=== PATIENT | female | born 1985 | race Caucasian/White ===

== ENCOUNTER 2016-12-19 21:41 | Emergency (ER) | payer MEDICAID ==
[2016-12-19 21:56] VITALS: BP 134/85
[2016-12-19] MEDS ORDERED: Mupirocin Oint 22 GM Tube TOP ONE (23:10)
[2016-12-19] MEDS ORDERED: Mupirocin Oint 22 GM Tube ONE (23:10)
--- NOTE | 2016-12-19 23:17 | EDM.PDOC ---
ED HPI GENERAL MEDICAL PROBLEM - General Chief Complaint: Skin Complaint Stated Complaint: BREAKING OUT ALL OVER, [id number] Time Seen by Provider: 12/19/16 23:05 Source of Information: Reports: Patient History Limitations: Reports: No Limitations - History of Present Illness INITIAL COMMENTS - FREE TEXT/NARRATIVE: c/o sores to chin right thumb and buttocks. Denies prior skin infections, Notes being around nieces and nephews with sores on abdomen and extremities. Crusting to sore on chin Location: Reports: Face, Upper Extremity, Right Severity: Mild Associated Symptoms: Reports: No Other Symptoms Face Pain Score (Numeric/FACES): 8 - Related Data Allergies Allergy/AdvReac Type Severity Reaction Status Date / Time amoxicillin [Amoxicillin] Allergy Rash Verified 12/19/16 21:54 Home Meds: Home Meds . 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: Social & Family History - Family History Family Medical History: Noncontributory - Tobacco Use Smoking Status *Q: Current Every Day Smoker Years of Tobacco use: 12 Packs/Tins Daily: 0.5 Second Hand Smoke Exposure: Yes - Recreational Drug Use Recreational Drug Use: No Drug Use in Last 12 Months: No - Living Situation & Occupation Living situation: Reports: Single Occupation: Employed ED ROS GENERAL - Review of Systems Review Of Systems: See Below Constitutional: Denies: Fever Respiratory: Denies: No Symptoms Musculoskeletal: Denies: No Symptoms Skin: Reports: Lesions ED EXAM, SKIN/RASH Exam: See Below Exam Limited By: No Limitations General Appearance: Alert Throat/Mouth: Normal Voice Head: Atraumatic Extremities: Normal Inspection Neurological: Alert, Oriented, Normal Cognition Skin: Warm, Erythema, Piercing(s). No: No Rash Location, Skin: Face, Upper Extremity, Right, Other (buttocks) Characteristics: Other (1cm circular crusted lesion right chin, 5mm red lesionbase right thumb punctate central lesion white moist, 3 dried 3mm circular lesions to right upper buttock.) Associated features: Crusting. No: Warmth, Weeping Course - Vital Signs Last Recorded V/S: Last Vital Signs Temp 98.4 F 12/19/16 21:50 Pulse 100 12/19/16 21:50 Resp 18 12/19/16 21:50 BP 134/85 12/19/16 21:50 Pulse Ox 100 12/19/16 21:50 - Orders/Labs/Meds Meds: Medications Discontinued Medications Generic Name Dose Route Start Last Admin Trade Name Avinash PRN Reason Stop Dose Admin Mupirocin Confirm 12/19/16 23:10 Bactroban Oint Administered 12/19/16 23:11 Dose 22 gm .ROUTE .STK-MED ONE Departure - Departure Time of Disposition: 23:05 Disposition: Home, Self-Care 01 Condition: Good Clinical Impression: Impetigo - Discharge Information Instructions: Impetigo, Adult Referrals: Zbigniew Burris MD [Primary Care Provider] - Forms: ED Department Discharge Additional Instructions: good handwashing, avoid touching or picking at areas mupirocin 3 times daily to affected area clinic follow up if not improving in 3-4 days
== END 2016-12-19 23:15 | disposition home or self-care (01) ==
LOC: DL.ED 21:41
DX: L01.00 Impetigo, unspecified (principal); F17.210 Nicotine dependence, cigarettes, uncomplicated; Z88.1 Allergy status to other antibiotic agents
CPT/HCPCS: 99283; A9270

== ENCOUNTER 2017-06-08 22:27 | Emergency (ER) | payer MEDICAID ==
[2017-06-08] MEDS ORDERED: Sodium Chloride 0.9% 1,000 ML IV ONE (22:37)
--- NOTE | 2017-06-08 22:40 | EDM.PDOC ---
ED HPI GENERAL MEDICAL PROBLEM - General Chief Complaint: Gastrointestinal Problem Stated Complaint: PGRAQUEL BLOOD, [id number] Time Seen by Provider: 06/08/17 22:38 Source of Information: Reports: Patient History Limitations: Reports: No Limitations - History of Present Illness INITIAL COMMENTS - FREE TEXT/NARRATIVE: vomiting past week then tonight blood came out too. thinks LMP feb/nov??? denies pain or vag bleeding - Related Data Allergies Allergy/AdvReac Type Severity Reaction Status Date / Time amoxicillin [Amoxicillin] Allergy Rash Verified 06/08/17 22:30 Home Meds: Home Meds . 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: Musculoskeletal History: Reports: None Neurological History: Reports: None Psychiatric History: Reports: None Endocrine/Metabolic History: Reports: None Hematologic History: Reports: None Immunologic History: Reports: None Oncologic (Cancer) History: Reports: None Dermatologic History: Reports: None Social & Family History - Family History Family Medical History: Noncontributory - Tobacco Use Smoking Status *Q: Light Tobacco Smoker Years of Tobacco use: 5 Packs/Tins Daily: 0.1 Second Hand Smoke Exposure: Yes - Recreational Drug Use Recreational Drug Use: No Drug Use in Last 12 Months: No - Living Situation & Occupation Living situation: Reports: Single Occupation: Employed ED ROS GENERAL - Review of Systems Review Of Systems: ROS reveals no pertinent complaints other than HPI. ED EXAM - Physical Exam Exam: See Below Exam Limited By: No Limitations General Appearance: Alert, WD/WN, Mild Distress, Moderate Distress, Other ( distraught) Ears: Hearing Grossly Normal Throat/Mouth: Normal Voice, No Airway Compromise Head: Atraumatic Neck: Non-Tender, Full Range of Motion Respiratory/Chest: No Respiratory Distress Cardiovascular: Regular Rate, Rhythm GI/Abdominal Exam: Soft, Non-Tender, Other (hyper BS). No: Distended, Guarding , Rigid, Rebound, Tender Psychiatric: Flat Affect Skin Exam: Warm, Normal Color Lymphatic: No Adenopathy Course - Vital Signs Last Recorded V/S: Last Vital Signs Temp 37.0 C 06/08/17 22:36 Pulse 89 06/08/17 23:38 Resp 16 06/08/17 23:38 BP 123/72 06/08/17 23:38 Pulse Ox 98 06/08/17 23:38 - Orders/Labs/Meds Labs: Laboratory Tests 06/08/17 06/08/17 06/08/17 Range/Units 22:40 22:40 22:40 WBC 15.3 H (5.0-10.0) 10^3/uL RBC 4.53 (4.2-5.4) 10^6/uL Hgb 14.6 (12.0-16.0) g/dL Hct 41.2 (37.0-47.0) % MCV 90.9 (80-100) fL MCH 32.2 (27.0-34.0) pg MCHC 35.4 H (33.0-35.0) g/dL Plt Count 249 (150-450) 10^3/uL Neut % (Auto) 86.5 H (42.2-75.2) % Lymph % (Auto) 8.6 L (20.5-50.1) % [place] % (Auto) 4.8 (2-8) % Eos % (Auto) 0.1 L (1.0-3.0) % Baso % (Auto) 0.0 (0.0-1.0) % Sodium 137 (135-145) mmol/L Potassium 3.1 L (3.6-5.0) mmol/L Chloride 106 (101-111) mmol/L Carbon Dioxide 22.0 (21.0-31.0) mmol/L Anion Gap 12.1 BUN 11 (7-18) mg/dL Creatinine 0.8 (0.6-1.3) mg/dL Est Cr Clr Drug Dosing 89.60 mL/min Estimated GFR (MDRD) > 60 BUN/Creatinine Ratio 13.75 Glucose 131 H (74-105) mg/dL Calcium 9.5 (8.4-10.2) mg/dl Total Bilirubin 0.6 (0.2-1.0) mg/dL AST 38 (10-42) IU/L ALT 28 (10-60) IU/L Alkaline Phosphatase 67 (42-121) IU/L Total Protein 7.9 (6.7-8.2) g/dl Albumin 4.3 (3.2-5.5) g/dl Globulin 3.6 Albumin/Globulin Ratio 1.19 HCG, Quant > 1371 H (0-25) mIU/ml Beta HCG, Quant 450219 mIU/ml Meds: Medications Discontinued Medications Generic Name Dose Route Start Last Admin Trade Name Freq PRN Reason Stop Dose Admin Sodium Chloride 1,000 mls @ 999 mls/hr 06/08/17 22:37 06/08/17 22:44 Normal Saline IV 06/08/17 23:37 999 mls/hr .BOLUS ONE Administration Ondansetron HCl 4 mg 06/08/17 23:24 06/08/17 23:29 Zofran IV 06/08/17 23:25 4 mg ONETIME ONE Administration - Re-Assessments/Exams Free Text/Narrative Re-Assessment/Exam: 06/08/17 23:25 results discussed with pt who is feeling fine except for slight nausea Departure - Departure Time of Disposition: 23:35 Disposition: Home, Self-Care 01 Condition: Good Clinical Impression: Hyperemesis gravidarum - Discharge Information Instructions: Nausea and Vomiting, Adult, [id number] Forms: ED Department Discharge Additional Instructions: 1) rest 2) avoid solid foods 3) have rita redmond 4) see family doctor Sunday 5) recheck if there is any change or concern rx given; zofran 4mg ODT bid prn nausea x 6
[2017-06-08 23:08] LABS: ANION GAP 12.1; CHLORIDE,CL 106 mmol/L (101-111); SODIUM,NA 137 mmol/L (135-145)
[2017-06-08] MEDS ORDERED: Ondansetron 4 MG/2 ML SDV IV ONE (23:24)
[2017-06-08 23:41] VITALS: BP 123/72
== END 2017-06-08 23:37 | disposition home or self-care (01) ==
LOC: DL.ED 22:27
DX: O21.0 Mild hyperemesis gravidarum (principal); O99.330 Smoking (tobacco) complicating pregnancy, unspecified trimester; F17.210 Nicotine dependence, cigarettes, uncomplicated; Z88.1 Allergy status to other antibiotic agents
CPT/HCPCS: 36415; 80053; 84702; 85025; 96361; 96374; 99284; J2405; J7030

== ENCOUNTER 2018-08-28 14:49 | Emergency (ER) | payer SELFPAY ==
[2018-08-28 14:59] VITALS: BP 129/81
--- NOTE | 2018-08-28 15:06 | EDM.PDOC ---
ED HPI GENERAL MEDICAL PROBLEM - General Chief Complaint: Abdominal Pain Stated Complaint: SERVERE STOMACH PAIN [id number] Time Seen by Provider: 08/28/18 15:05 Source of Information: Reports: Patient History Limitations: Reports: No Limitations - History of Present Illness INITIAL COMMENTS - FREE TEXT/NARRATIVE: Patient comes emergency Department today with complaints of diarrhea and left upper quadrant abdominal pain. In Alan clock this morning she has had multiple bouts of diarrhea about 10. She has subjective fever and chills. She did not check her temperature. No nausea no vomiting. Her pain is gotten slowly worse and comes in waves of pain in the left upper quadrant. No chest pain or shortness of breath or difficult breathing. No back pain or flank pain. No hematuria dysuria or urinary frequency. The rest of her abdomen is nontender. Abdominal Pain Score (Numeric/FACES): 10 - Related Data Allergies Allergy/AdvReac Type Severity Reaction Status Date / Time amoxicillin [Amoxicillin] Allergy Rash Verified 08/28/18 14:59 Home Meds: Home Meds . 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: Musculoskeletal History: Reports: None Neurological History: Reports: None Psychiatric History: Reports: None Endocrine/Metabolic History: Reports: None Hematologic History: Reports: Anemia Immunologic History: Reports: None Oncologic (Cancer) History: Reports: None Dermatologic History: Reports: None - Infectious Disease History Infectious Disease History: Reports: Chicken Pox - Past Surgical History HEENT Surgical History: Reports: Oral Surgery, Other (See Below) Other HEENT Surgeries/Procedures: wisdom teeth Female Surgical History: Reports: LEEP Social & Family History - Family History Family Medical History: Noncontributory - Tobacco Use Smoking Status *Q: Current Every Day Smoker Years of Tobacco use: 15 Packs/Tins Daily: 0.5 Second Hand Smoke Exposure: No - Caffeine Use Caffeine Use: Reports: Soda Other Caffeine Use: 5 cans/day - Recreational Drug Use Recreational Drug Use: No - Living Situation & Occupation Living situation: Reports: Single Occupation: Employed ED ROS GENERAL - Review of Systems Review Of Systems: ROS reveals no pertinent complaints other than HPI. ED EXAM, GI/ABD - Physical Exam Exam: See Below Exam Limited By: No Limitations General Appearance: Alert, Mild Distress (crying and rolling around on the cot holding her left flank/left upper abd. ) Eyes: Bilateral: EOMI Ears: Normal External Exam Nose: Normal Inspection Throat/Mouth: Normal Oropharynx, No Airway Compromise. No: Normal Inspection ( oral mucosa is dry. ) Head: Atraumatic, Normocephalic Neck: Normal Inspection, Supple, Non-Tender Respiratory/Chest: No Respiratory Distress, Lungs Clear, Normal Breath Sounds, No Accessory Muscle Use, Chest Non-Tender Cardiovascular: Normal Peripheral Pulses, Regular Rate, Rhythm GI/Abdominal Exam: Normal Bowel Sounds, Soft, No Organomegaly, No Distention, No Abnormal Bruit, No Mass, Pelvis Stable, Guarding (LUQ ), Tender (LUQ). No: Distended, Rigid, Rebound Back Exam: Normal Inspection. No: CVA Tenderness (L), CVA Tenderness (R) Extremities: Normal Inspection, Normal Range of Motion, Non-Tender, No Pedal Edema, Normal Capillary Refill Neurological: Alert, Oriented, Normal Cognition, No Motor/Sensory Deficits Psychiatric: Normal Affect, Normal Mood Skin Exam: Dry, Intact, Normal Color, Cool Lymphatic: No Adenopathy Course - Vital Signs Last Recorded V/S: Last Vital Signs Temp 36.1 C 08/28/18 14:54 Pulse 94 08/28/18 14:54 Resp 18 08/28/18 14:54 BP 129/81 08/28/18 14:54 Pulse Ox 100 08/28/18 14:54 - Orders/Labs/Meds Labs: Laboratory Tests 08/28/18 08/28/18 08/28/18 Range/Units 15:09 15:09 15:09 WBC (5.0-10.0) 10^3/uL RBC (4.2-5.4) 10^6/uL Hgb (12.0-16.0) g/dL Hct (37.0-47.0) % MCV (80-100) fL MCH (27.0-34.0) pg MCHC (33.0-35.0) g/dL Plt Count (150-450) 10^3/uL Neut % (Auto) (42.2-75.2) % Lymph % (Auto) (20.5-50.1) % [place] % (Auto) (2-8) % Eos % (Auto) (1.0-3.0) % Baso % (Auto) (0.0-1.0) % Sodium (135-145) mmol/L Potassium (3.6-5.0) mmol/L Chloride (101-111) mmol/L Carbon Dioxide (21.0-31.0) mmol/L Anion Gap BUN (7-18) mg/dL Creatinine (0.6-1.3) mg/dL Est Cr Clr Drug Dosing mL/min Estimated GFR (MDRD) BUN/Creatinine Ratio Glucose (74-105) mg/dL Lactic Acid (0.5-2.2) mmol/L Calcium (8.4-10.2) mg/dl Total Bilirubin (0.2-1.0) mg/dL AST (10-42) IU/L ALT (10-60) IU/L Alkaline Phosphatase (42-121) IU/L C-Reactive Protein (0.0-1.3) mg/dL Total Protein (6.7-8.2) g/dl Albumin (3.2-5.5) g/dl Globulin Albumin/Globulin Ratio Urine Color Yellow (YELLOW) Urine Appearance Slightly cloudy (CLEAR) Urine pH 5.5 (5.0-9.0) Ur Specific Leonore >= 1.030 (1.005-1.030) Urine Protein >=300 H (NEGATIVE) Urine Glucose (UA) Negative (NEGATIVE) Urine Ketones 80 H (NEGATIVE) Urine Occult Blood Small H (NEGATIVE) Urine Nitrite Negative (NEGATIVE) Urine Bilirubin Small H (NEGATIVE) Urine Urobilinogen 0.2 (0.2-1.0) mg/dL Ur Leukocyte Esterase Negative (NEGATIVE) Urine RBC 5-10 H /HPF Urine WBC 10-20 H (0-5/HPF) /HPF Ur Epithelial Cells Few /HPF Amorphous Sediment Few (0/HPF) /HPF Urine Bacteria Few (0-FEW/HPF) /HPF Fine Granular Casts Occasional H (0/LPF) /LPF Urine Mucus Few H /LPF Urinalysis Comment Urine HCG, Qual Negative Urine Opiates Screen Negative (NEGATIVE) Ur Oxycodone Screen Negative (NEGATIVE) Urine Methadone Screen Negative (NEGATIVE) Ur Barbiturates Screen Negative (NEGATIVE) U Tricyclic Antidepress Negative (NEGATIVE) Ur Phencyclidine Scrn Negative (NEGATIVE) Ur Amphetamine Screen Positive H (NEGATIVE) U Methamphetamines Scrn Positive H (NEGATIVE) Urine MDMA Screen Negative (NEGATIVE) U Benzodiazepines Scrn Negative (NEGATIVE) Urine Cocaine Screen Negative (NEGATIVE) U Marijuana (THC) Screen Positive H (NEGATIVE) 08/28/18 08/28/18 08/28/18 Range/Units 15:24 15:24 15:24 WBC 14.6 H (5.0-10.0) 10^3/uL RBC 5.53 H (4.2-5.4) 10^6/uL Hgb 16.3 H D (12.0-16.0) g/dL Hct 47.1 H (37.0-47.0) % MCV 85.2 D (80-100) fL MCH 29.5 (27.0-34.0) pg MCHC 34.6 (33.0-35.0) g/dL Plt Count 260 (150-450) 10^3/uL Neut % (Auto) 88.2 H (42.2-75.2) % Lymph % (Auto) 5.8 L (20.5-50.1) % [place] % (Auto) 4.4 (2-8) % Eos % (Auto) 1.5 (1.0-3.0) % Baso % (Auto) 0.1 (0.0-1.0) % Sodium 136 (135-145) mmol/L Potassium 3.3 L (3.6-5.0) mmol/L Chloride 108 (101-111) mmol/L Carbon Dioxide 16.0 L (21.0-31.0) mmol/L Anion Gap 15.3 BUN 14 (7-18) mg/dL Creatinine 0.9 (0.6-1.3) mg/dL Est Cr Clr Drug Dosing 78.93 mL/min Estimated GFR (MDRD) > 60 BUN/Creatinine Ratio 15.55 Glucose 93 (74-105) mg/dL Lactic Acid 0.8 (0.5-2.2) mmol/L Calcium 9.3 (8.4-10.2) mg/dl Total Bilirubin 0.8 (0.2-1.0) mg/dL AST 16 (10-42) IU/L ALT 14 (10-60) IU/L Alkaline Phosphatase 92 (42-121) IU/L C-Reactive Protein (0.0-1.3) mg/dL Total Protein 8.4 H (6.7-8.2) g/dl Albumin 4.4 (3.2-5.5) g/dl Globulin 4.0 Albumin/Globulin Ratio 1.10 Urine Color (YELLOW) Urine Appearance (CLEAR) Urine pH (5.0-9.0) Ur Specific Leonore (1.005-1.030) Urine Protein (NEGATIVE) Urine Glucose (UA) (NEGATIVE) Urine Ketones (NEGATIVE) Urine Occult Blood (NEGATIVE) Urine Nitrite (NEGATIVE) Urine Bilirubin (NEGATIVE) Urine Urobilinogen (0.2-1.0) mg/dL Ur Leukocyte Esterase (NEGATIVE) Urine RBC /HPF Urine WBC (0-5/HPF) /HPF Ur Epithelial Cells /HPF Amorphous Sediment (0/HPF) /HPF Urine Bacteria (0-FEW/HPF) /HPF Fine Granular Casts (0/LPF) /LPF Urine Mucus /LPF Urinalysis Comment Urine HCG, Qual Urine Opiates Screen (NEGATIVE) Ur Oxycodone Screen (NEGATIVE) Urine Methadone Screen (NEGATIVE) Ur Barbiturates Screen (NEGATIVE) U Tricyclic Antidepress (NEGATIVE) Ur Phencyclidine Scrn (NEGATIVE) Ur Amphetamine Screen (NEGATIVE) U Methamphetamines Scrn (NEGATIVE) Urine MDMA Screen (NEGATIVE) U Benzodiazepines Scrn (NEGATIVE) Urine Cocaine Screen (NEGATIVE) U Marijuana (THC) Screen (NEGATIVE) 08/28/18 08/28/18 Range/Units 15:24 16:24 WBC (5.0-10.0) 10^3/uL RBC (4.2-5.4) 10^6/uL Hgb (12.0-16.0) g/dL Hct (37.0-47.0) % MCV (80-100) fL MCH (27.0-34.0) pg MCHC (33.0-35.0) g/dL Plt Count (150-450) 10^3/uL Neut % (Auto) (42.2-75.2) % Lymph % (Auto) (20.5-50.1) % [place] % (Auto) (2-8) % Eos % (Auto) (1.0-3.0) % Baso % (Auto) (0.0-1.0) % Sodium (135-145) mmol/L Potassium (3.6-5.0) mmol/L Chloride (101-111) mmol/L Carbon Dioxide (21.0-31.0) mmol/L Anion Gap BUN (7-18) mg/dL Creatinine (0.6-1.3) mg/dL Est Cr Clr Drug Dosing mL/min Estimated GFR (MDRD) BUN/Creatinine Ratio Glucose (74-105) mg/dL Lactic Acid (0.5-2.2) mmol/L Calcium (8.4-10.2) mg/dl Total Bilirubin (0.2-1.0) mg/dL AST (10-42) IU/L ALT (10-60) IU/L Alkaline Phosphatase (42-121) IU/L C-Reactive Protein < 0.5 (0.0-1.3) mg/dL Total Protein (6.7-8.2) g/dl Albumin (3.2-5.5) g/dl Globulin Albumin/Globulin Ratio Urine Color Yellow (YELLOW) Urine Appearance Slightly cloudy (CLEAR) Urine pH 5.5 (5.0-9.0) Ur Specific [place] >= 1.030 (1.005-1.030) Urine Protein 100 H (NEGATIVE) Urine Glucose (UA) Negative (NEGATIVE) Urine Ketones >=160 H (NEGATIVE) Urine Occult Blood Trace-intact H (NEGATIVE) Urine Nitrite Negative (NEGATIVE) Urine Bilirubin Small H (NEGATIVE) Urine Urobilinogen 0.2 (0.2-1.0) mg/dL Ur Leukocyte Esterase Negative (NEGATIVE) Urine RBC 0-5 /HPF Urine WBC 10-20 H (0-5/HPF) /HPF Ur Epithelial Cells Few /HPF Amorphous Sediment Occasional (0/HPF) /HPF Urine Bacteria Few (0-FEW/HPF) /HPF Fine Granular Casts Occasional H (0/LPF) /LPF Urine Mucus Moderate H /LPF Urinalysis Comment Urine HCG, Qual Urine Opiates Screen (NEGATIVE) Ur Oxycodone Screen (NEGATIVE) Urine Methadone Screen (NEGATIVE) Ur Barbiturates Screen (NEGATIVE) U Tricyclic Antidepress (NEGATIVE) Ur Phencyclidine Scrn (NEGATIVE) Ur Amphetamine Screen (NEGATIVE) U Methamphetamines Scrn (NEGATIVE) Urine MDMA Screen (NEGATIVE) U Benzodiazepines Scrn (NEGATIVE) Urine Cocaine Screen (NEGATIVE) U Marijuana (THC) Screen (NEGATIVE) Meds: Medications Discontinued Medications Generic Name Dose Route Start Last Admin Trade Name Avinash PRN Reason Stop Dose Admin Diphenhydramine HCl 25 mg 08/28/18 15:11 08/28/18 15:25 Benadryl IVPUSH 08/28/18 15:12 25 mg ONETIME ONE Administration Lactated Ringer's 1,000 mls @ 1,000 mls/hr 08/28/18 15:11 08/28/18 17:53 Ringers, Lactated IV 08/28/18 16:10 Infused .BOLUS ONE Infusion Lactated Ringer's 1,000 mls @ 1,000 mls/hr 08/28/18 16:33 08/28/18 17:54 Ringers, Lactated IV 08/28/18 17:32 Infused .BOLUS ONE Infusion Ketorolac Tromethamine 30 mg 08/28/18 15:11 08/28/18 15:28 Toradol IVPUSH 08/28/18 15:12 30 mg ONETIME ONE Administration Labetalol HCl 20 mg 08/28/18 17:28 08/28/18 17:48 Normodyne IVPUSH 08/28/18 17:29 Not Given ONETIME ONE Protocol Sodium Chloride 10 ml 08/28/18 15:11 08/28/18 15:25 Saline Flush FLUSH 10 ml ASDIRECTED PRN Administration Keep Vein Open - Radiology Interpretation Free Text/Narrative:: IV LR 1 liter Ketorolac 30mg IVP Benadryl 25mg IVP Departure - Departure Time of Disposition: 18:00 Disposition: Home, Self-Care 01 Clinical Impression: Gastroenteritis, Methamphetamine abuse, Dehydration - Discharge Information Instructions: Viral Gastroenteritis, Adult, [id number]-[id number], Dehydration, Adult, [id number]-Ctmt Forms: ED Department Discharge Additional Instructions: Lots of fluids over the next few days especially electrolyte containing material such as Gatorade and or Powerade. No dairy products until diarrhea free for 48 hrs. Slowly advance diet as tolerated. Return to the ED if new or worsening symptoms. Follow up with PCP in the next 4-6 days if not improving sooner if worse. - Assessment/Plan Assessment:: Viral gastroenteritis. Dehydration. Plan: TPA NIcardipine Transfer to [facility].
[2018-08-28] MEDS ORDERED: diphenhydrAMINE 50 MG/ML SDV IVPUSH ONE (15:11)
[2018-08-28] MEDS ORDERED: Sodium Chloride 0.9% 10 ML Syringe FLUSH PRN (15:11)
[2018-08-28] MEDS ORDERED: Lactated Ringers 1,000 ML IV ONE ×2 (15:11→16:33)
[2018-08-28] MEDS ORDERED: Ketorolac 30 MG/ML SDV IVPUSH ONE (15:11)
[2018-08-28 15:50] LABS: ANION GAP 15.3; CHLORIDE,CL 108 mmol/L (101-111); SODIUM,NA 136 mmol/L (135-145)
[2018-08-28] MEDS ORDERED: Labetalol 100 MG/20 ML MDV IVPUSH ONE (17:28)
== END 2018-08-28 18:52 | disposition home or self-care (01) ==
LOC: DL.ED 14:49
DX: K52.9 Noninfective gastroenteritis and colitis, unspecified (principal); E86.0 Dehydration; F15.10 Other stimulant abuse, uncomplicated; F17.210 Nicotine dependence, cigarettes, uncomplicated; Z88.1 Allergy status to other antibiotic agents
CPT/HCPCS: 36415; 80053; 80305; 81001; 81025; 83605; 85025; 86140; 96365; 96375; 99284; J1200; J1885; J7120

== ENCOUNTER 2020-08-02 17:05 | Inpatient (IN) | payer MEDICAID ==
[2020-08-02] MEDS: Oxytocin/Normal Saline 30 UNIT/500 ML BAG IV SCH ×2 (17:35→18:48)
--- NOTE | 2020-08-02 17:46 | PCM.LDHP ---
L&D History of Present Illness - General Date of Service: 08/02/20 Admit Problem/Dx: Admission Diagnosis/Problem Admission Diagnosis/Problem Source of Information: Patient History Limitations: Reports: No Limitations - History of Present Illness Introduction:: 34-year-old presented to L&D in active labor. Patient is unsure how far along she is. She has had no care with this . She states she had an ultrasound at the [facility] in May and was told she was 28 weeks at that time. Patient states she had increased contractions that started about an hour before. She states that she has a history of rapid deli veries. Her last baby was delivered in the car on the way to the hospital. She denies any drug use with this or any medical issues. Patient was extremely uncomfortable so a very careful cervical exam was completed that showed the patient to be completely dilated and at 2+ station. - Related Data Allergies/Adverse Reactions: Allergies Allergy/AdvReac Type Severity Reaction Status Date / Time amoxicillin [Amoxicillin] Allergy Rash Verified 08/02/20 18:15 Home Medications: Home Meds Vit with Ca/FA/Iron [ Plus Iron] 1 tab PO DAILY 08/02/20 [History] Acetaminophen [Tylenol] 650 mg PO Q6H PRN tablet 08/04/20 [Rx] Docusate Sodium [Colace] 100 mg PO BID PRN cap 08/04/20 [Rx] Ferrous Sulfate 325 mg PO WITHBREAKFAST tablet 08/04/20 [Rx] Ibuprofen [Motrin] 800 mg PO Q8H PRN tablet 08/04/20 [Rx] Past Medical History - Past Health History Medical/Surgical History: Denies Medical/Surgical History HEENT History: Reports: None Cardiovascular History: Reports: None Respiratory History: Reports: None Gastrointestinal History: Reports: None Genitourinary History: Reports: None 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: Musculoskeletal History: Reports: None Neurological History: Reports: None Psychiatric History: Reports: None Endocrine/Metabolic History: Reports: None Hematologic History: Reports: Anemia Immunologic History: Reports: None Oncologic (Cancer) History: Reports: None Dermatologic History: Reports: None - Infectious Disease History Infectious Disease History: Reports: Chicken Pox - Past Surgical History HEENT Surgical History: Reports: Oral Surgery, Other (See Below) Other HEENT Surgeries/Procedures: wisdom teeth Female Surgical History: Reports: LEEP Social & Family History - Family History Family Medical History: No Pertinent Family History - Caffeine Use Caffeine Use: Reports: Soda Other Caffeine Use: 5 cans/day - Living Situation & Occupation Living situation: Reports: Single Occupation: Employed H&P Review of Systems - Review of Systems: Review Of Systems: Unable To Obtain (Due to time constraints with patient in severe pain due to active labor) Reason Not Obtained: In pain due to labor L&D Exam - Exam Exam: See Below - OB Specific Contraction Intensity: Strong Movement: Active Heart Tones: Present Heart Tones per Min: 135 Heart Rate (FHR) Variability: Moderate (6-25 bmp) Presentation: Vertex - Cabrera Score Cabrera Score Cervix Position: Anterior Cabrera Score Consistency: Soft Cabrera Score Effacement: >80% Cabrera Score Dilation: > 5 cm Cabrera Score Infant's Station: +1, +2 Cabrera Score Total: 13 - Exam General: Alert, Oriented Lungs: Clear to Auscultation, Normal Respiratory Effort Cardiovascular: Regular Rhythm, Tachycardia Extremities: No Pedal Edema, Normal Capillary Refill Skin: Warm, Dry, Intact - Patient Data Result Diagrams: 08/03/20 05:38 - Problem List (1) care SNOMED Code(s): 104340522, [id number], [id number], [id number] ICD Code: Z34.90 - ENCNTR FOR SUPRVSN OF NORMAL , UNSP, UNSP TRIMESTER Status: Acute (2) No care in current SNOMED Code(s): 948227338 ICD Code: O09.30 - SUPRVSN OF PREG W INSUFFICIENT ANTENAT CARE, UNSP TRIMESTER Status: Acute (3) Active labor SNOMED Code(s): 944134399 ICD Code: CIY6471 - Status: Acute Problem List Initiated/Reviewed/Updated: Yes Assessment/Plan Comment:: 34-year-old at unknown gestational age in active labor 1. Insert IV 2. RYLAN labs 3. Expectant management. Anticipate imminent Dr. Belia Florez MD
--- NOTE | 2020-08-02 17:46 | PCM.DEL ---
L & D Note - General Info Date of Service: 08/02/20 - Delivery Note Labor: Spontaneous Delivery Outcome: Livebirth Delivery Method: Spontaneous Vaginal Delivery-Single Presentation: Vertex Nuchal Cord: None Anesthesia Type: None Amniotic Fluid Description: Clear Episiotomy Type: None Cord: 3 Vessels Estimated Blood Loss: 650 [place]: Stimulated, Warmed, [place] Used, Warmer Used Score 1 min: 9 Score 5 min: 9 Delivery Comments (Free Text/Narrative):: Patient presented to L&D in 2nd stage labor with no care. Patient was noted to be completely dilated after careful cervical exam was performed. IV access was established. Patient pushed for 15 minutes and delivered a viable female with Apgars of 9 and 9 at 1 and 5 minutes respectively. Umbilical cord was clamped x2 and cut. Baby was taken to the warmer for evaluation. Cord blood was collected. Placenta delivered spontaneously about 5 minutes later. Mild uterine atony was noted. Methergine was given and pitocin was bolused. A large blood clot was removed from the lower uterine segment, and uterine tone improved over the next minute. Perineum was inspected and noted to be intact. Uterine tone remained firm, and bleeding was noted to be appropriate. Patient tolerated the procedure well, and there were no immediate complications. - General Info Date of Service: 08/02/20 - Problem List & Annotations (1) No care in current SNOMED Code(s): 035244777 Code(s): O09.30 - SUPRVSN OF PREG W INSUFFICIENT ANTENAT CARE, UNSP TRIMESTER Status: Acute (2) Normal vaginal delivery SNOMED Code(s): 83169377, 148139847 Code(s): O80 - ENCOUNTER FOR FULL-TERM UNCOMPLICATED DELIVERY Status: Acute - Problem List Review Problem List Initiated/Reviewed/Updated: Yes - Assessment Assessment:: 34-year-old now at unknown gestational age S/P - Plan Plan:: 1. Initiate cares 2. Obtain UDS 3. Plans to bottle feed 4. Anticipate discharge 08/04/2020 Belia Florez MD
[2020-08-02] MEDS ORDERED: Benzocaine/Menthol 20%-0.5% Spray 56 GM Canister TOP PRN (17:47)
[2020-08-02] MEDS ORDERED: Acetaminophen 325 MG Tab PO PRN (17:47)
[2020-08-02] MEDS ORDERED: Oxytocin 10 Units/1 ML SDV IM PRN (17:47)
[2020-08-02] MEDS ORDERED: Carboprost Tromethamine 250 MCG/1 ML Amp IM PRN (17:47)
[2020-08-02] MEDS ORDERED: Tranexamic Acid 1,000 MG in Sodium Chloride 0.9% 100 ML IV PRN (17:47)
[2020-08-02] MEDS ORDERED: Misoprostol 400 MCG (4 X 100 MCG TAB) RECTAL PRN (17:47)
[2020-08-02] MEDS ORDERED: Methylergonovine 0.2 MG/1 ML Amp IM SCH (18:15)
[2020-08-02] MEDS ORDERED: Ondansetron 4 MG/2 ML SDV IVPUSH PRN (18:16)
[2020-08-02] MEDS ORDERED: Lactated Ringers 1,000 ML IV SCH (18:30)
[2020-08-02] MEDS: Ibuprofen 800 MG Tab PO PRN (18:49)
[2020-08-02] MEDS: Simethicone 80 MG Tab.Chew PO PRN (22:46)
[2020-08-02] MEDS: Docusate Sodium 100 MG Cap PO PRN (22:47)
[2020-08-03] MEDS: Ibuprofen 800 MG Tab PO PRN ×2 (02:56→21:12)
[2020-08-03] MEDS: Prenatal Multivitamin with Calcium/Folic Acid/Iron Tab PO SCH ×2 (10:17→21:14)
[2020-08-03] MEDS: Simethicone 80 MG Tab.Chew PO PRN (21:12)
[2020-08-03] MEDS: Docusate Sodium 100 MG Cap PO PRN (21:12)
[2020-08-04] MEDS ORDERED: Measles, Mumps & Rubella Vaccine 0.5 ML SDV SUBCUT ONE (07:05)
[2020-08-04] MEDS ORDERED: Ferrous Sulfate 325 MG Tab PO SCH (08:00)
[2020-08-04] MEDS ORDERED: Nitrofurantoin Monohydrate/Macrocrystalline 100 MG Cap PO ONE (09:00)
[2020-08-04] MEDS: Docusate Sodium 100 MG Cap PO PRN (09:05)
[2020-08-04] MEDS: Prenatal Multivitamin with Calcium/Folic Acid/Iron Tab PO SCH (09:05)
[2020-08-04 09:30] VITALS: BP 123/67; PULSE 86
[2020-08-04 10:46] LABS: C.TRACHOMATIS BY TMA Negative (Negative); N.GONORRHOEAE BY TMA Negative (Negative)
--- NOTE | 2020-08-04 11:01 | DISCH ---
ADMISSION DIAGNOSES: 1. Active labor. 2. 5, para 2-2-0-4. 3. Unknown gestational age. 4. No care. 5. Marijuana use. 6. Group B Streptococcus status unknown. 7. Blood type AB positive. DISCHARGE DIAGNOSES: 1. Active labor. 2. 5, now para 2-3-0-5. 3. Unknown gestational age. 4. No care. 5. Marijuana use. 6. Group B Streptococcus status unknown. 7. Blood type AB positive. 8. Rubella equivocal. 9. Status post precipitous vaginal delivery. 10.Mild hemorrhage, controlled with tranexamic acid, Methergine, and 2 bags of IV Pitocin. 11.Status post vaginal delivery. 12.Anemia of . BRIEF HISTORY: A 34-year-old female with the above-listed diagnoses presented to the hospital in active labor and went on to deliver vaginally within about a 1/2 hour after arrival. Delivery was uncomplicated. Estimated blood loss was 650 mL. I do not see that a perineal repair was necessary. Bleeding was controlled with uterine massage, TXA, Methergine, and 2 bags of IV Pitocin, and the patient has not had symptoms warranting or requiring a blood transfusion nor a significant enough hemoglobin to require that either. HOSPITAL COURSE: Good. She has been tolerating regular diet, ambulating, voiding without difficulties, even had 1 bowel movement, no chest pain or shortness of breath, denies craving any cigarettes, bottle feeding her baby, and denies any acute concerns or problems and looking forward to discharge today. DISCHARGE CONDITION: Good. PHYSICAL EXAMINATION: VITAL SIGNS: Temperature is 98.7, pulse 76, blood pressure 113/56, respiratory rate of 18, and O2 saturations 96% on room air. HEART: Regular without obvious murmur. LUNGS: End-expiratory wheezing throughout all lung bose, consistent with smoking status. Otherwise, lungs are clear. ABDOMEN: Soft without masses. Uterus is firm and below the umbilicus. EXTREMITIES: No edema, erythema, or tenderness is noted. LABORATORY: Admission hemoglobin of 10.3, discharge 9.0, and platelets, admission 285, discharge 255. She is blood type AB positive. Antibody screen was negative. Rubella was equivocal. Urine drug screen was positive for THC. HIV is nonreactive, and SARS-CoV-2 is negative. Other panel tests are currently pending. DISPOSITION: Home with family. MEDICATIONS: Ibuprofen 800 mg every 8 hours as needed for pain, Tylenol 650 mg every 6 hours as needed for pain, Colace 100 mg twice daily as needed for constipation, iron 325 mg twice daily for her anemia, and vitamin C 500 mg twice daily with her iron to help the iron absorption. INSTRUCTIONS: Routine post vaginal delivery care instructions for a bottle feeding mother were provided. FOLLOWUP: She will see Dr. Burris in 6 weeks for a routine exam. depression can be screened when he sees the baby in a couple of days for first check. Currently, the patient reports that she is doing well. [facility] /[phone]
--- NOTE | 2020-08-10 23:22 | PCM.PNPP ---
- General Info Date of Service: 08/03/20 Subjective Update: PPD#1. Patient is very sleepy today but is doing well. Reports her vaginal bleeding is slowing down. Urinating and passing gas. Tolerating a general diet. No fever, chills, nausea, vomiting, dizziness or lightheadedness. Ambulating without difficulty. No concerns per patient or per nursing staff. Functional Status: Reports: Pain Controlled, Tolerating Diet, Ambulating, Urinating - Review of Systems General: Reports: No Symptoms HEENT: Reports: No Symptoms Pulmonary: Reports: No Symptoms Cardiovascular: Reports: No Symptoms Gastrointestinal: Reports: No Symptoms Musculoskeletal: Reports: Back Pain Skin: Reports: No Symptoms Neurological: Reports: No Symptoms - General Info Date of Service: 08/03/20 - Patient Data Vital Signs - Most Recent: Last Vital Signs Temp 36.9 C 08/04/20 08:00 Pulse 86 08/04/20 08:00 Resp 16 08/04/20 08:00 BP 123/67 08/04/20 08:00 Pulse Ox 98 08/04/20 08:00 Weight - Most Recent: 79.379 kg Med Orders - Current: Current Medications Discontinued Medications Acetaminophen (Acetaminophen 325 Mg Tab) 650 mg PO Q6H PRN PRN Reason: Mild Pain (1-3) or Fever Benzocaine/Menthol (Benzocaine/Menthol 20%-0.5% [place] 56 Gm Canister) 0 gm TOP Q4H PRN PRN Reason: Perineal comfort measures Carboprost Tromethamine (Carboprost Tromethamine 250 Mcg/1 Ml Amp) 250 mcg IM ASDIRECTED PRN PRN Reason: Excessive vaginal bleeding Docusate Sodium (Docusate Sodium 100 Mg Cap) 100 mg PO BID PRN PRN Reason: Constipation Last Admin: 08/04/20 09:05 Dose: 100 mg Documented by: Ferrous Sulfate (Ferrous Sulfate 325 Mg Tab) 325 mg PO WITHBREAKFAST RAHEEM Last Admin: 08/04/20 09:05 Dose: 325 mg Documented by: Tranexamic Acid 1,000 mg/ (Sodium Chloride) 110 mls @ 660 mls/hr IV ONETIME PRN PRN Reason: Bleeding Last Admin: 08/02/20 17:40 Dose: 660 mls/hr Documented by: Oxytocin/Sodium Chloride (Pitocin In Ns 30 Unit/500 Ml) 30 unit in 500 mls @ 2 mls/hr IV TITRATE RAHEEM; Protocol Last Titration: 08/02/20 18:50 Dose: 125 munits/min, 125 mls/hr Documented by: Lactated Ringer's (Ringers, Lactated) 1,000 mls @ 125 mls/hr IV ASDIRECTED RAHEEM Last Admin: 08/02/20 17:27 Dose: 125 mls/hr Documented by: Ibuprofen (Ibuprofen 800 Mg Tab) 800 mg PO Q8H PRN PRN Reason: Cramping Last Admin: 08/03/20 21:12 Dose: 800 mg Documented by: Measles/Mumps/Rubella Vaccine Live (Measles, Mumps & Rubella Vaccine 0.5 Ml Sdv) 0.5 ml SUBCUT .ONCE ONE Stop: 08/04/20 07:06 Last Admin: 08/04/20 09:05 Dose: 0.5 ml Documented by: Methylergonovine Maleate (Methylergonovine 0.2 Mg/1 Ml Amp) 0.2 mg IM ONETIME RAHEEM Last Admin: 08/02/20 17:40 Dose: 0.2 mg Documented by: Misoprostol (Misoprostol 400 Mcg (4 X 100 Mcg Tab)) 800 mcg RECTAL ONETIME PRN PRN Reason: Hemorrhage Nitrofurantoin Macrocrystals (Nitrofurantoin Monohydrate/Macrocrystalline 100 Mg Cap) 100 mg PO ONETIME ONE Stop: 08/04/20 09:01 Last Admin: 08/04/20 09:05 Dose: 100 mg Documented by: Ondansetron HCl (Ondansetron 4 Mg/2 Ml Sdv) 4 mg IVPUSH Q4H PRN PRN Reason: Nausea/Vomiting Last Admin: 08/02/20 18:25 Dose: 4 mg Documented by: Oxytocin (Oxytocin 10 Units/1 Ml Sdv) 10 unit IM ONETIME PRN PRN Reason: Bleeding Prenat Multivit/[place]/Iron/Folic Ac ( Multivitamin With Calcium/Folic Acid/Iron Tab) 1 each PO DAILY RAHEEM Last Admin: 08/04/20 09:05 Dose: 1 each Documented by: Simethicone (Simethicone 80 Mg Tab.Chew) 80 mg PO Q4H PRN PRN Reason: Gas Last Admin: 08/03/20 21:12 Dose: 80 mg Documented by: - Infant Interaction Infant Disposition, : to Nursery Feeding: Bottle Fed Infant Support Person: Significant Other - Recovery Exam Fundal Tone: Firm Fundal Level: 2 Fingerbreadths Below Umbilicus Fundal Placement: Midline Lochia Amount: Scant Lochia Color: Rubra/Red Perineum Description: Intact, Minimal Bruising/Swelling Episiotomy/Laceration: None Bladder Status: Voiding - Exam General: Alert, Oriented Lungs: Clear to Auscultation, Normal Respiratory Effort Cardiovascular: Regular Rate, Regular Rhythm, No Murmurs Extremities: No Pedal Edema Skin: Warm, Dry, Intact - Problem List & Annotations (1) No care in current SNOMED Code(s): 279133897 Code(s): O09.30 - SUPRVSN OF PREG W INSUFFICIENT ANTENAT CARE, UNSP TRIMESTER Status: Acute (2) Normal vaginal delivery SNOMED Code(s): 42572137, 655400792 Code(s): O80 - ENCOUNTER FOR FULL-TERM UNCOMPLICATED DELIVERY Status: Acute - Problem List Review Problem List Initiated/Reviewed/Updated: Yes - Assessment Assessment:: 34-year-old now PPD#1 at unknown gestational age S/P - Plan Plan:: 1. Conitnue cares 2. Bottle feeding 3. Anticipate discharge 08/04/2020 Belia Florez MD
== END 2020-08-04 09:10 | disposition home or self-care (01) | DRG 806 ==
LOC: DL.OBCHECK 17:05 → DL.OB 17:31
PROVIDERS: ADMIT Family Medicine; ATTEND Family Medicine
PROC: 10E0XZZ Delivery of Products of Conception, External Approach (ICD-10-PCS; principal; 2020-08-02)
PROC: 10907ZC Drainage of Amniotic Fluid, Therapeutic from Products of Conception, Via Natural or Artificial Opening (ICD-10-PCS; 2020-08-02)
DX: O62.3 Precipitate labor (principal); O72.1 Other immediate postpartum hemorrhage; Z37.0 Single live birth; O99.324 Drug use complicating childbirth; Z3A.00 Weeks of gestation of pregnancy not specified; Z20.822 Contact with and (suspected) exposure to COVID-19; F15.90 Other stimulant use, unspecified, uncomplicated
CPT/HCPCS: 36415; 59409; 80305-QW; 80307; 81001; 85027; 86592; 86762; 86803; 86850; 86900; 86901; 87081; 87086; 87088; 87186; 87340; 87389; 87491; 87591; 90471; 90707; A9270-GY; J2210; J2405; J2590; J7120; U0002

== ENCOUNTER 2021-06-06 16:01 | Inpatient (IN) | payer MEDICAID ==
[2021-06-06] MEDS: Lactated Ringers 1,000 ML IV SCH ×6 (16:05→22:23)
[2021-06-06] MEDS ORDERED: Carboprost Tromethamine 250 MCG/1 ML Amp IM PRN (16:31)
[2021-06-06] MEDS ORDERED: Misoprostol 400 MCG (4 X 100 MCG TAB) RECTAL PRN (16:31)
[2021-06-06] MEDS ORDERED: Ondansetron 4 MG/2 ML SDV IVPUSH PRN ×2 (16:31→17:54)
[2021-06-06] MEDS ORDERED: Tranexamic Acid 1,000 MG in Sodium Chloride 0.9% 100 ML IV PRN (16:31)
[2021-06-06] MEDS ORDERED: Naloxone 2 MG/2 ML Syringe IVPUSH PRN ×2 (16:31→17:54)
[2021-06-06] MEDS ORDERED: Docusate Sodium 100 MG Cap PO PRN (16:31)
[2021-06-06] MEDS ORDERED: Methylergonovine 0.2 MG/1 ML Amp IM PRN (16:31)
[2021-06-06] MEDS ORDERED: Acetaminophen/oxyCODONE 325-5 MG Tab PO PRN ×2 (16:31)
[2021-06-06] MEDS ORDERED: Acetaminophen 325 MG Tab PO PRN (16:31)
[2021-06-06] MEDS ORDERED: ePHEDrine 50 MG/ML SDV IVPUSH PRN (16:31)
[2021-06-06] MEDS ORDERED: diphenhydrAMINE 50 MG/ML SDV IVPUSH PRN ×2 (16:31→17:54)
[2021-06-06] MEDS ORDERED: Oxytocin/Normal Saline 60 UNIT/1,000 ML BAG ONE (16:41)
[2021-06-06 17:04] LABS: AMPHETAMINES,URINE POSITIVE (NEGATIVE); BARBITURATES,URINE NEGATIVE (NEGATIVE); BENZODIAZEPINE,URINE NEGATIVE (NEGATIVE); MDMA (ECSTASY), URINE NEGATIVE (NEGATIVE); METHADONE,URINE NEGATIVE (NEGATIVE); METHAMPHETAMINES,URINE POSITIVE (NEGATIVE); OPIATES,URINE NEGATIVE (NEGATIVE); PHENCYCLIDINE,URINE NEGATIVE (NEGATIVE); TCA,URINE NEGATIVE (NEGATIVE)
[2021-06-06 17:05] LABS: OXYCODONE,URINE NEGATIVE (NEGATIVE)
[2021-06-06] MEDS ORDERED: fentaNYL Citrate/PF 1,500 MCG/30 ML PCA Vial ONE (17:44)
[2021-06-06] MEDS: Oxytocin/Normal Saline 30 UNIT/500 ML BAG IV SCH ×2 (17:45→22:10)
[2021-06-06] MEDS ORDERED: diphenhydrAMINE 25 MG Tab PO PRN (17:54)
[2021-06-06] MEDS ORDERED: fentaNYL Citrate/PF 1,500 MCG/30 ML PCA Vial IV SCH (18:00)
[2021-06-06] MEDS ORDERED: Ketorolac 30 MG/ML SDV IVPUSH SCH (19:30)
[2021-06-06] MEDS ORDERED: cefTRIAXone 1 GM in Sodium Chloride 0.9% 50 ML IV SCH (20:00)
[2021-06-06] MEDS ORDERED: Succinylcholine 200 MG/10 ML MDV IV ONE (20:49)
[2021-06-06] MEDS ORDERED: Lactated Ringers 1,000 ML IV ONE (20:49)
[2021-06-06] MEDS ORDERED: fentaNYL 250 MCG/5 ML SDV IV ONE (20:49)
[2021-06-06] MEDS ORDERED: Propofol 200 MG/20 ML SDV IV ONE (20:49)
[2021-06-06] MEDS ORDERED: Ketorolac 30 MG/ML SDV IVPUSH ONE (20:49)
[2021-06-06] MEDS ORDERED: Oxytocin/Normal Saline 30 UNIT/500 ML BAG IV ONE (20:49)
[2021-06-06] MEDS: Simethicone 80 MG Tab.Chew PO SCH ×2 (22:06→22:07)
[2021-06-07 00:31] VITALS: BP 118/54; PULSE 100
[2021-06-07] MEDS ORDERED: Prenatal Multivitamin with Calcium/Folic Acid/Iron Tab PO SCH (09:00)
[2021-06-07] MEDS ORDERED: Ibuprofen 800 MG Tab PO PRN (15:30)
[2021-06-09 12:47] LABS: C.TRACHOMATIS BY TMA Negative (Negative); N.GONORRHOEAE BY TMA Negative (Negative)
== END 2021-06-06 20:50 | DRG 786 ==
LOC: DL.OBCHECK 16:01 → DL.OB 16:02 → OBSVTOIN 16:31 → DL.OB 16:31
PROVIDERS: ADMIT Family Medicine; ATTEND Family Medicine
PROC: 10D00Z1 Extraction of Products of Conception, Low, Open Approach (ICD-10-PCS; principal; 2021-06-06)
PROC: 30233N1 Transfusion of Nonautologous Red Blood Cells into Peripheral Vein, Percutaneous Approach (ICD-10-PCS; 2021-06-06)
DX: O42.113 Preterm premature rupture of membranes, onset of labor more than 24 hours following rupture, third trimester (principal); O45.93 Premature separation of placenta, unspecified, third trimester; O72.1 Other immediate postpartum hemorrhage; O99.324 Drug use complicating childbirth; Z37.0 Single live birth; O77.0 Labor and delivery complicated by meconium in amniotic fluid; F15.90 Other stimulant use, unspecified, uncomplicated; F12.90 Cannabis use, unspecified, uncomplicated; O99.334 Smoking (tobacco) complicating childbirth; F17.210 Nicotine dependence, cigarettes, uncomplicated; Z20.822 Contact with and (suspected) exposure to COVID-19; Z3A.30 30 weeks gestation of pregnancy
CPT/HCPCS: 01961; 36430; 51702; 76815; 80305-QW; 80307; 81001; 85025; 85027; 86592; 86762; 86803; 86850; 86900; 86901; 86920; 86922; 87081; 87086; 87088; 87186; 87210; 87340; 87389; 87491; 87591; A9270-GY; J0690; J2210; J2590; J3010; J7120; P9016; U0002